=== PATIENT | female | born 1995 | race Caucasian/White ===

== ENCOUNTER 2025-02-14 18:18 | Inpatient (IN) | payer BC, SELFPAY ==
[2025-02-14] VITALS (7 sets, daily range): BP systolic 102–132; BP diastolic 56–79; BMI 28.9
[2025-02-14 13:08] LABS: Glucose - Point of Care 353 mg/dl (70-99)
--- NOTE | 2025-02-14 14:10 | ED.GENMED ---
History of Present Illness
<Alan Wahl PA-C - Last Filed: 02/14/25 16:26>
General
Chief Complaint: Blood Sugar Problem
Source: patient
Exam Limitations: none
Time Seen by Provider: 02/14/25 13:53
History of Present Illness
History of Present Illness:
29-year-old female with type I diabetic presents complaining of nausea and vomiting starting today. She is here visiting from [facility] where she lives. Her mother has been admitted to the hospital over the past 2 weeks. She states she also
under some stress from work. She forgot her glucose monitor at home in [facility] so she has been guessing as far as how much insulin to give herself. She has had DKA but in the years past. She denies chest pain or respiratory difficulty. She
just does not feel quite right. No other complaints at this time
Phy Exam
<Alan Wahl PA-C - Last Filed: 02/14/25 16:26>
Physical Exam
Physical Exam:
General: Well appearing female NAD
HEENT: NCAT
heart: Tachycardic but regular
Lungs: Clear no wheeze
Abdomen soft nontender
Extremities: No cyanosis
Course
<CHINO Gallo Last Filed: 02/14/25 16:26>
Orders/Labs/Results
Orders:
Orders
02/14/25 14:04
0.9% Sodium Chloride 1000 ml [Nss] 1,000 ml IV BOLUS
02/14/25 14:13
Acetone [B-Hydroxybutyrate] Urgent
Basic Metabolic Panel Urgent
Complete Blood Count/With Diff Urgent
02/14/25 15:02
Ondansetron Injectable [Zofran] 4 mg IV NOW STA
02/14/25 15:29
Comprehensive Metabolic Panel Urgent
Venous Blood Gas Urgent
%Oxygen/Room Air: room air
02/14/25 15:54
Add On- LAB Urgent
Tests Added?: BHB
02/14/25 16:12
Bedside Glucose- Treatment Q1H
IV Insert/Care/Rem.- Treatment PRN
Reg Insulin 100 Units/100 ml [Novolin R Insulin Infusion] 100 units in 100 ml IV NOW
02/14/25 18:15
Basic Metabolic Panel Q2H
02/14/25 20:15
Basic Metabolic Panel Q2H
Abnormal Lab Results
02/14/25 02/14/25 02/14/25
13:06 14:13 15:29
WBC 19.0 H 10^3/uL
(4.8-10.8)
MPV 11.8 H fL
(7.4-10.4)
Abs Immat Gran (auto) 0.1 H 10^3/uL
(0-0.05)
Absolute Neuts (auto) 17.3 H 10^3/uL
(1.4-6.5)
Absolute Lymphs (auto) 1.1 L 10^3/uL
(1.2-3.4)
Neutrophils % 90.8 H %
(42.2-75.2)
Lymphocytes % 5.7 L %
(20.5-51.1)
VBG pH 7.26 L
(7.32-7.43)
VBG pO2 56 H mmHg
(30-50)
VBG HCO3 17.1 L mmol/L
(22-27)
Sodium 134 L mmol/L 133 L mmol/L
(135-145) (135-145)
Potassium 5.3 H mmol/L
(3.5-5.1)
Chloride 96 L mmol/L
(98-107)
Carbon Dioxide 17 L mmol/L 17 L mmol/L
(22-30) (22-30)
BUN 20 H mg/dl 20 H mg/dl
(7-17) (7-17)
Glucose 367 H mg/dl 361 H mg/dl
(70-99) (70-99)
Total Bilirubin 1.8 H mg/dl
(0.2-1.3)
POC Glucose 353 H mg/dl
(70-99)
02/14/25
16:05
WBC
MPV
Abs Immat Gran (auto)
Absolute Neuts (auto)
Absolute Lymphs (auto)
Neutrophils %
Lymphocytes %
VBG pH
VBG pO2
VBG HCO3
Sodium
Potassium
Chloride
Carbon Dioxide
BUN
Glucose
Total Bilirubin
POC Glucose 341 H mg/dl
(70-99)
02/14/25 14:13
Vital Signs
Initial and Last Documented VS:
Initial Vital Signs
Temp Pulse Resp BP Pulse Ox
97.9 F 123 18 130/79 98
02/14/25 13:00 02/14/25 13:00 02/14/25 13:00 02/14/25 13:00 02/14/25 13:00
Last Documented Vital Signs
Temp Pulse Resp BP Pulse Ox
97.9 F 106 18 102/63 99
02/14/25 13:00 02/14/25 16:11 02/14/25 16:11 02/14/25 16:08 02/14/25 16:15
<Mac Wilkinson, DO - Last Filed: 02/14/25 16:30>
Orders/Labs/Results
Orders:
Orders
02/14/25 14:04
0.9% Sodium Chloride 1000 ml [Nss] 1,000 ml IV BOLUS
02/14/25 14:13
Acetone [B-Hydroxybutyrate] Urgent
Basic Metabolic Panel Urgent
Complete Blood Count/With Diff Urgent
02/14/25 15:02
Ondansetron Injectable [Zofran] 4 mg IV NOW STA
02/14/25 15:29
Comprehensive Metabolic Panel Urgent
Venous Blood Gas Urgent
%Oxygen/Room Air: room air
02/14/25 15:54
Add On- LAB Urgent
Tests Added?: BHB
02/14/25 16:12
Bedside Glucose- Treatment Q1H
IV Insert/Care/Rem.- Treatment PRN
Reg Insulin 100 Units/100 ml [Novolin R Insulin Infusion] 100 units in 100 ml IV NOW
02/14/25 18:15
Basic Metabolic Panel Q2H
02/14/25 20:15
Basic Metabolic Panel Q2H
Abnormal Lab Results
02/14/25 02/14/25 02/14/25
13:06 14:13 15:29
WBC 19.0 H 10^3/uL
(4.8-10.8)
MPV 11.8 H fL
(7.4-10.4)
Abs Immat Gran (auto) 0.1 H 10^3/uL
(0-0.05)
Absolute Neuts (auto) 17.3 H 10^3/uL
(1.4-6.5)
Absolute Lymphs (auto) 1.1 L 10^3/uL
(1.2-3.4)
Neutrophils % 90.8 H %
(42.2-75.2)
Lymphocytes % 5.7 L %
(20.5-51.1)
VBG pH 7.26 L
(7.32-7.43)
VBG pO2 56 H mmHg
(30-50)
VBG HCO3 17.1 L mmol/L
(22-27)
Sodium 134 L mmol/L 133 L mmol/L
(135-145) (135-145)
Potassium 5.3 H mmol/L
(3.5-5.1)
Chloride 96 L mmol/L
(98-107)
Carbon Dioxide 17 L mmol/L 17 L mmol/L
(22-30) (22-30)
BUN 20 H mg/dl 20 H mg/dl
(7-17) (7-17)
Glucose 367 H mg/dl 361 H mg/dl
(70-99) (70-99)
Total Bilirubin 1.8 H mg/dl
(0.2-1.3)
POC Glucose 353 H mg/dl
(70-99)
02/14/25
16:05
WBC
MPV
Abs Immat Gran (auto)
Absolute Neuts (auto)
Absolute Lymphs (auto)
Neutrophils %
Lymphocytes %
VBG pH
VBG pO2
VBG HCO3
Sodium
Potassium
Chloride
Carbon Dioxide
BUN
Glucose
Total Bilirubin
POC Glucose 341 H mg/dl
(70-99)
02/14/25 14:13
Vital Signs
Initial and Last Documented VS:
Initial Vital Signs
Temp Pulse Resp BP Pulse Ox
97.9 F 123 18 130/79 98
02/14/25 13:00 02/14/25 13:00 02/14/25 13:00 02/14/25 13:00 02/14/25 13:00
Last Documented Vital Signs
Temp Pulse Resp BP Pulse Ox
97.9 F 106 18 102/63 99
02/14/25 13:00 02/14/25 16:11 02/14/25 16:11 02/14/25 16:08 02/14/25 16:15
<Alan Wahl PA-C - Last Filed: 02/14/25 16:26>
MDM/Problems Addressed
Differential Diagnosis Includes:
Patient concern for DKA as she has had this in the past and she has not been able to check her blood sugar levels over the past 2 weeks. Fingerstick glucose at triage was 353. She is slightly tachycardic with no respiratory distress. Will check
labs including beta hydroxybutyrate and hydrate. Offered nausea medicine however she declined.
<Alan Wahl PA-C - Last Filed: 02/14/25 16:26>
*Pulse Oximetry
SaO2: 98
Oxygen Mode of Delivery: Room air
Patient hypoxic: no
*Critical Care Note
Total Time (30-74mins, 75-104mins- exclusive of procedures): Not Applicable
<Alan Wahl PA-C - Last Filed: 02/14/25 16:26>
Update Note
Update Note:
Reviewed labs with leukocytosis with a white count of 19, pH is 7.2, serum glucose is elevated with an anion gap. I suspect mild DKA. Fluids ordered insulin drip ordered. Discussed with emergency room attending. Admit to hot
ED Attending Note
<Alan Wahl PA-C - Last Filed: 02/14/25 16:26>
-
Portions of this chart may have been created with voice recognition software.� Occasional wrong word or��sound alike� substitutions may have occurred due to the inherent limitations of voice recognition software.
<Mac Wilkinson, - Last Filed: 02/14/25 16:30>
ED Attending Note
Patient seen and examined by attending physician: Yes
ED Attending Note:
I have reviewed and agree with history treatment plan by Alan Wahl PA-C. My exam revealed
Physical Exam
General: no apparent distress, not acutely ill
Neck: supple. no meningeal signs. normal posterior pharynx
Heart: s1/s2 regular rate and rhythm, no murmur. equal radial
pulses.
HEENT: Pupils equal round reactive to light, EOMI
Lungs: no acute respiratory distress. clear bilaterally
Abdomen: normal bowel sounds. not tender. no CVAT
Neuro: alert and oriented. no focal neurological deficits cranial nerves II through XII intact
Skin: no rash
Psychiatric: well kept. interactive and cooperative
Extremities: no edema. no calf tenderness. negative homans. good distal pulses
29-year-old female with mild DKA, insulin drip initiated mild hyperkalemia. Admit to hospitalist.
Discharge Plan
Departure
Patient Disposition: Admit
Date of Disposition: 02/14/25
Time of Disposition: 16:25
Presentation/result/management discussed w/ accepting MD/DO: Hospitalist
Discharge Problem:
DKA (diabetic ketoacidosis)
Referrals:
NONE,* [Family Provider, Internal Medicine]
Interventions
Interventions:
*Risk Screen - Suicide Last Done: 02/14/25 13:00
*General Assessment Last Done: 02/14/25 13:00
*Neglect/Abuse Screening Last Done: 02/14/25 14:15
*ED- Fall Risk Assessment Last Done: 02/14/25 14:18
*ED COVID-19 Vaccine History Last Done: 02/14/25 14:15
*ED Influenza Vaccine History Last Done: 02/14/25 14:18
ED- Neurological Assessment Last Done: 02/14/25 14:18
Discharge Date and Time
Print Language: BAHAMIAN
[2025-02-14] MEDS: NSS 1000 IV ×2 (14:14→18:37)
[2025-02-14 14:32] LABS: Hematocrit 42.2 % (37.0-47.0); Hemoglobin 14.4 g/dL (12.0-16.0); Mean Corp Hgb Conc. 34.1 g/dL (33.0-37.0); Mean Corpuscular Volume 89.6 fL (81.0-99.0); Nucleated Red Blood Cells % 0 %; Platelet Count 281 10^3/uL (130-400); Red Cell Dist. Width 12.3 % (11.5-14.5)
[2025-02-14] MEDS: ZOFRAN 4 MG IV (15:08)
[2025-02-14 15:19] LABS: Blood Urea Nitrogen 20 mg/dl (7-17); Calcium 9.9 mg/dl (8.4-10.2); Carbon Dioxide 17 mmol/L (22-30); Chloride 96 mmol/L (98-107); Glucose 367 mg/dl (70-99); Sodium 134 mmol/L (135-145); eGFR > 60.00
[2025-02-14 15:36] LABS: Venous Blood Gas B.E. -9.3 mmol/L (-4 to +4); Venous Blood Gas O2 Sat % 85.0 %
[2025-02-14 15:50] LABS: ALT (SGPT) 17 U/L (0-35); AST (SGOT) 24 U/L (14-36); Albumin 4.6 g/dl (3.5-5.0); Alkaline Phosphatase 75 U/L (38-126); Blood Urea Nitrogen 20 mg/dl (7-17); Calcium 9.3 mg/dl (8.4-10.2); Carbon Dioxide 17 mmol/L (22-30); Chloride 100 mmol/L (98-107); Glucose 361 mg/dl (70-99); Potassium 5.3 mmol/L (3.5-5.1); Sodium 133 mmol/L (135-145); Total Protein 7.5 g/dl (6.3-8.2); eGFR > 60.00
[2025-02-14 16:06] LABS: Glucose - Point of Care 341 mg/dl (70-99)
[2025-02-14] MEDS: NOVOLIN R INSULIN INFUSION 100 IV (16:39)
--- NOTE | 2025-02-14 16:39 | HPS.HSE ---
Addendum entered and electronically signed by Zoila Harris MD 02/14/25 18:04:
This is an addendum to H&P written by Delaney Perez on 02/14/2025. �Patient seen and examined independently with JUICE MIXER.
29-year-old female past medical history of type 1 diabetes presenting with nausea and vomiting today and diarrhea today. �She is from [facility] but came here to visit her mother who is admitted in this hospital. �She forgot her glucose monitor
at home 2 weeks ago and trying to administer glucose via the pump as best she can.
Vital signs show tachycardia up to 124.
Labs show leukocytosis of 19. �Potassium 5.3. �Blood sugar 360. �Beta hydroxybutyrate 4.7. �Anion gap 16. �VBG shows pH of 7.26, bicarb of 17.
Patient with mild DKA secondary to insufficient insulin. �N.p.o., IV fluids with normal saline. �Accu-Cheks every hour, BMP every 2 hours. �Insulin drip.
Original Note:
Family Physician
-
Family Physician: * NONE
Chief Complaint
-
nausea and vomiting
History of Present Illness
Patient is a 29-year-old female with past medical history of IDDM who presented to [facility] ED for evaluation of nausea and vomiting. Patient is in the area visiting from [place] on a emergent bases after her mom required hospitalization. In the [place] to
get to the area during packing 2 weeks ago she had forgotten to pack a glucose monitor and has been estimating what she required for insulin since. This morning she started with nausea, vomiting and an episode of diarrhea when she knew she would
need evaluation.
Medical History
Past Medical History
Past Medical History: Reports Other
Additional Past Medical History:
type 1 diabetes
Past Surgical History: Reports Other
Additional Past Surgical History:
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
Social History
Tobacco: Non-smoker
Alcohol: Occasional
Drug: None
Personal: Single
Living: Alone
Employment: Employed
Family History
Family History: Adopted
Allergies / Home Medications
Allergies reflects when Allergies were last updated in [facility].
Home Medications with original date entered in [facility]
Allergy/Medication List:
Allergies
Allergy/AdvReac Type Severity Reaction Status Date / Time
seasonal pollens Allergy sore Uncoded 02/14/25 13:00
throat,runny
nose,itchy
eyes,
congestion
Home Medications
insulin aspart U-100 100 unit/mL subcutaneous solution (Novolog U-100 Insulin aspart) 1 sliding scale dose SC .CONTINUOUS 02/14/25
Review of Systems
-
History Source: Patient
Constitutional: Denies Fever or Chills
EENT: Denies Sore Throat
Respiratory: Denies Cough, Hemoptysis or Trouble Breathing
Cardiac: Denies Chest Pain, Diaphoresis, Palpitations or Syncope
Abdomen/GI: Reports Nausea, Vomiting and Diarrhea; Denies Abdominal Pain
: Denies Dysuria, Frequency or Urgency
Musculoskeletal: Denies Joint Pain or Joint Swelling
Skin: Denies Rash
Neurological: Denies Dizzy, Headache, Weakness or Numbness
Endocrine: Denies Polyuria or Polydipsia
Hematologic/Lymphatic: Denies Bleeding
Physical Exam
Vital Signs
Vital Signs
Temp Pulse Resp BP Pulse Ox
97.9 F 106 18 102/63 99
02/14/25 13:00 02/14/25 16:11 02/14/25 16:11 02/14/25 16:08 02/14/25 16:15
Physical Exam
General: Well Developed, Well Nourished, No Apparent Distress, Comfortable and Conversant
HEENT: NormoCephalic, PERRLA, Nose Appears Normal and Ears Appear Normal
Respiratory: Clear, Non Labored Respirations and Decreased Breath Sounds; No Wheezes, Rales or Rhonchi
Cardiac: S1/S2 and Regular Rhythm; No Murmur, Rub or Gallop
GI: Soft, Non Tender, Non Distended and Normal Bowel Sounds
Musculoskeletal: No Clubbing, No Cyanosis and No Edema
Skin: Warm and IV/Catheter Site
Neuro: Awake and AO x 3
Psych: Calm and Intact Judgment/Insight
Laboratory Results
-
02/14/25 14:13
Laboratory Results
Total Bilirubin 1.8 mg/dl (0.2-1.3) H 02/14/25 15:29
AST 24 U/L (14-36) 02/14/25 15:29
ALT 17 U/L (0-35) 02/14/25 15:29
Alkaline Phosphatase 75 U/L (38-126) 02/14/25 15:29
Data Reviewed
-
Lab Data: Labs Reviewed by me (WBC 19.0, Neut 90.8, Na 133, K 5.3, HCO3 17)
Impression/Plan
-
IMPRESSION/PLAN:
#nausea, vomiting and diarrhea 2/2 infectious process vs. DKA
#IDDM
nausea, vomiting and diarrhea starting today 02/14/2025, no AccuCheck for 2 weeks r/t forgetting at home
on insulin pump
WBC 19.0, Neut 90.8, Na 133, K 5.3, HCO3 17
- Admit to IMU
- Consult Taker Away
- Insulin gtt
- NSS 150cc/hr
- pump turned off while on insulin gtt for DKA
Code status: full code
DVT prophylaxis: Lovenox sq
[2025-02-14 17:42] LABS: Glucose - Point of Care 292 mg/dl (70-99)
[2025-02-14] MEDS: LOVENOX 40 MG SC (18:37)
[2025-02-14 18:55] LABS: Blood Urea Nitrogen 21 mg/dl (7-17); Calcium 9.6 mg/dl (8.4-10.2); Carbon Dioxide 17 mmol/L (22-30); Chloride 102 mmol/L (98-107); Estimated Creatinine Clearance 101 ml/min; Glucose 225 mg/dl (70-99); Potassium 4.1 mmol/L (3.5-5.1); Sodium 133 mmol/L (135-145); eGFR > 60.00
[2025-02-14 18:55] LABS: Glucose - Point of Care 202 mg/dl (70-99)
--- NOTE | 2025-02-14 19:02 | PTCARENOTE ---
Patient to room 3354 from ED. Pt arrived on a stretcher and walked to bed. On arrival, pt with Insluin gtt running, blood sugar obtained and changed gtt based on protocol, see flowsheet. Pt is aaox3, pleasant. BMP obtained. Pt does have her Insulin
pump attached but it is off. Pt is NPO, she verbalized understanding. Report given to oncoming shift.
[2025-02-14 20:16] LABS: Glucose - Point of Care 131 mg/dl (70-99)
[2025-02-14] MEDS: D5/0.45%NSS with KCL 20 MEQ 1000 IV (20:23)
[2025-02-14 21:03] LABS: Blood Urea Nitrogen 19 mg/dl (7-17); Calcium 9.1 mg/dl (8.4-10.2); Carbon Dioxide 21 mmol/L (22-30); Chloride 105 mmol/L (98-107); Estimated Creatinine Clearance 115 ml/min; Glucose 127 mg/dl (70-99); Potassium 4.2 mmol/L (3.5-5.1); Sodium 132 mmol/L (135-145); eGFR > 60.00
[2025-02-14 21:14] LABS: Glucose - Point of Care 131 mg/dl (70-99)
[2025-02-14 22:15] LABS: Glucose - Point of Care 146 mg/dl (70-99)
[2025-02-14 22:41] LABS: Potassium 4.2 mmol/L (3.5-5.1)
--- NOTE | 2025-02-14 22:52 | PTCARENOTE ---
Assumed care of patient from franciscailjordan RN. Patient aaox3. Sinus tach on monitor, 100-110s. 98% on RA. insulin gtt currently infusing at 1 u/hr per protocol. q1 accu checks ongoing. Patient resting in bed with call bentley in reach and is able to make
needs known.
[2025-02-14 23:20] LABS: Glucose - Point of Care 156 mg/dl (70-99)
[2025-02-15] VITALS (9 sets, daily range): BP systolic 89–129; BP diastolic 53–87
[2025-02-15 00:17] LABS: Glucose - Point of Care 158 mg/dl (70-99)
[2025-02-15 01:21] LABS: Glucose - Point of Care 141 mg/dl (70-99)
[2025-02-15 02:21] LABS: Glucose - Point of Care 146 mg/dl (70-99)
[2025-02-15 02:59] LABS: Blood Urea Nitrogen 18 mg/dl (7-17); Calcium 8.7 mg/dl (8.4-10.2); Carbon Dioxide 24 mmol/L (22-30); Chloride 106 mmol/L (98-107); Estimated Creatinine Clearance 115 ml/min; Glucose 168 mg/dl (70-99); Potassium 4.4 mmol/L (3.5-5.1); Sodium 136 mmol/L (135-145); eGFR > 60.00
[2025-02-15 03:20] LABS: Glucose - Point of Care 149 mg/dl (70-99)
[2025-02-15 04:22] LABS: Glucose - Point of Care 160 mg/dl (70-99)
[2025-02-15 05:00] LABS: Hematocrit 35.7 % (37.0-47.0); Hemoglobin 12.4 g/dL (12.0-16.0); Mean Corp Hgb Conc. 34.7 g/dL (33.0-37.0); Mean Corpuscular Volume 91.1 fL (81.0-99.0); Platelet Count 251 10^3/uL (130-400); Red Cell Dist. Width 12.3 % (11.5-14.5)
[2025-02-15 05:14] LABS: Glucose - Point of Care 160 mg/dl (70-99)
[2025-02-15 05:24] LABS: Blood Urea Nitrogen 19 mg/dl (7-17); Calcium 8.8 mg/dl (8.4-10.2); Carbon Dioxide 24 mmol/L (22-30); Chloride 105 mmol/L (98-107); Estimated Creatinine Clearance 115 ml/min; Glucose 161 mg/dl (70-99); Potassium 4.6 mmol/L (3.5-5.1); Sodium 132 mmol/L (135-145); eGFR > 60.00
[2025-02-15 06:21] LABS: Glucose - Point of Care 130 mg/dl (70-99)
[2025-02-15 07:15] LABS: Glucose - Point of Care 138 mg/dl (70-99)
[2025-02-15] MEDS: D5/0.45%NSS with KCL 20 MEQ 1000 IV (07:46)
[2025-02-15 08:10] LABS: Glucose - Point of Care 147 mg/dl (70-99)
--- NOTE | 2025-02-15 08:57 | W.PN.HOSP.TC ---
Today's Communication/Plan
-
Discharge in the afternoon if tolerating diet
Assessment / Plan
Assessment / Plan
HPI: 29-year-old female past medical history of type 1 diabetes presenting with nausea and vomiting today and diarrhea today. �She is from [facility] but came here to visit her mother who is admitted in this hospital. �She forgot her glucose
monitor at home 2 weeks ago and trying to administer glucose via the pump as best she can. Labs show leukocytosis of 19. �Potassium 5.3. �Blood sugar 360. �Beta hydroxybutyrate 4.7. �Anion gap 16. �VBG shows pH of 7.26, bicarb of 17. Patient with
mild DKA secondary to insufficient insulin. �N.p.o., IV fluids with normal saline. �Accu-Cheks every hour, BMP every 2 hours. �Insulin drip.
#Mild DKA
#Type 1 diabetes hemoglobin A1c 8.3
Gap closed on insulin drip
Appreciate DM TOOL AND DIE SUPERVISOR, stop insulin drip, restart insulin pump
Start 2000 carb ADA diet
Discharge in the afternoon if tolerating diet
#Nausea/vomiting/diarrhea
Resolved
#Leukocytosis
Patient is afebrile, likely reactive from vomiting and DKA
Physical Exam
General: No acute distress
HEENT: Normocephalic, Atraumatic, EOMI, MMM
Respiratory: Clear to Auscultation bilaterally
Cardiac: Normal S1/S2, Regular Rate and Rhythm
GI: Soft, Nontender, Nondistended, Normal Bowel Sounds
Extremities: No Clubbing, Cyanosis, or Edema
Neuro: Nonfocal/Grossly Intact
Psych: Calm, Cooperative
Derm: No Visible lesions
Anticipated Discharge: Today
Subjective/Interval History
-
Date of Service: February 15, 2025
Nausea, vomiting, and diarrhea resolved. She denies chest pain, denies shortness of breath. No fever, no vomiting.
Objective Data
-
Labs:
Laboratory Results
02/14/25 02/14/25 02/15/25
20:26 22:14 00:14
WBC
Hgb
Hct
Plt Count
Sodium 132 L Cancelled
Potassium 4.2 4.2 Cancelled
Chloride 105 Cancelled
Carbon Dioxide 21 L Cancelled
BUN 19 H Cancelled
Creatinine 0.7 Cancelled
Glucose 127 H Cancelled
Calcium 9.1 Cancelled
02/15/25 02/15/25 02/15/25
02:22 04:00 04:08
WBC
Hgb
Hct
Plt Count
Sodium 136 Cancelled 132 L
Potassium 4.4 Cancelled 4.6
Chloride 106 Cancelled 105
Carbon Dioxide 24 Cancelled 24
BUN 18 H Cancelled 19 H
Creatinine 0.7 Cancelled 0.7
Glucose 168 H Cancelled 161 H
Calcium 8.7 Cancelled 8.8
02/15/25 02/15/25 02/15/25
04:10 06:00 08:20
WBC 16.6 H
Hgb 12.4
Hct 35.7 L
Plt Count 251
Sodium Cancelled Pending
Potassium Cancelled Pending
Chloride Cancelled Pending
Carbon Dioxide Cancelled Pending
BUN Cancelled Pending
Creatinine Cancelled Pending
Glucose Cancelled Pending
Calcium Cancelled Pending
02/15/25 02/15/25 02/15/25
12:00 16:00 20:00
WBC
Hgb
Hct
Plt Count
Sodium Pending Pending Pending
Potassium Pending Pending Pending
Chloride Pending Pending Pending
Carbon Dioxide Pending Pending Pending
BUN Pending Pending Pending
Creatinine Pending Pending Pending
Glucose Pending Pending Pending
Calcium Pending Pending Pending
Vital Signs:
Vital Signs
Temp Pulse Resp BP Pulse Ox
98.4 F 74 17 95/64 98
02/15/25 03:14 02/15/25 04:12 02/15/25 04:12 02/15/25 04:12 02/15/25 04:12
I&O
02/14/25 02/15/25 02/16/25
06:59 06:59 06:59
Intake Total 1250 / 1250
Balance 1250 / 1250
--- NOTE | 2025-02-15 09:03 | PN.DE.MGMTRT ---
Insulin Management
- -
02/15/2025: Diabetes Management Consult
29 year old female with PMH: T1DM presenting with nausea and vomiting today and diarrhea, due to DKA.
Patient is in the area visiting from [place] on a emergent bases after her mom required hospitalization. In the [place] to get to the area during packing 2 weeks ago she had forgotten to pack a glucose monitor and has been estimating what she required for
insulin since.
She routinely sees Endo Dr. Macedo in [place] for routine diabetes care.
A1C 8.3% on admission. Pt states last A1C in Endo office was 8.2% on 12/2024. Cr 0.7, eGFR >60
Patient is awake alert and oriented sitting up in chair, offers no complaints able to discuss diabetes care plan.
Currently on DKA protocol, GAP has closed as of 4AM BMP. Glucose range is 130 to 160 receiving 1-2 units of insulin/hr
Pt doesn't have a CGM but has enough insulin in her pump. Explained to pt that she would need to have a Dexcom sensor in order for her to monitor her blood sugars, she is not able to obtain a sensor at this time. Discussed options for interim
management and pt declined MDI, states she would like to resume her insulin pump. Provided Patient with a new CGM Christiano 3 plus sensor, she has downloaded the Christiano lavinia and is in process of syncing CGM sensor with her pump and phone. Returned to pt's
room after sensor warmup period to assist with restarting insulin pump
He current POC Glucose on hospital AccuChek machine is 164. Patient has applied her insulin pump and she is able to manage her insulin pump and deliver meal and correction boluses independently.
Pump worksheet at bedside.
Discussed with patients nurse.
Pump settings:
Basal Correction CHO target
12am 1.3 40 8 110
12PM 1.3 30 10 110
7PM 1.3 25 10 110
24 HOUR BASAL TOTAL 31.2 UNITS
Pt is ordered 2000 joycelyn diet will change to 1800 joycelyn diet, pt is only 5'3'
Diabetes History
- -
Type of Diabetes: 1
Pre-Admission Diabetes Regimen
02/14/25 02/14/25 02/14/25
14:13 15:29 16:15
Creatinine 0.7 0.7 Cancelled
02/14/25 02/14/25 02/15/25
18:29 20:26 00:14
Creatinine 0.8 0.7 Cancelled
02/15/25 02/15/25 02/15/25
02:22 04:00 04:08
Creatinine 0.7 Cancelled 0.7
02/15/25 02/15/25 02/15/25
06:00 12:00 16:00
Creatinine Cancelled Cancelled Cancelled
02/15/25
20:00
Creatinine Cancelled
Insulin Pump Settings
IP Diabetes Regimen
02/14/25 02/14/25 02/14/25
13:06 14:13 15:29
Glucose 367 H 361 H
POC Glucose 353 H
02/14/25 02/14/25 02/14/25
16:05 16:15 17:41
Glucose Cancelled
POC Glucose 341 H 292 H
02/14/25 02/14/25 02/14/25
18:29 18:44 20:06
Glucose 225 H
POC Glucose 202 H 131 H
02/14/25 02/14/25 02/14/25
20:26 21:03 22:04
Glucose 127 H
POC Glucose 131 H 146 H
02/14/25 02/15/25 02/15/25
23:09 00:06 00:14
Glucose Cancelled
POC Glucose 156 H 158 H
02/15/25 02/15/25 02/15/25
01:09 02:10 02:22
Glucose 168 H
POC Glucose 141 H 146 H
02/15/25 02/15/25 02/15/25
03:08 04:00 04:08
Glucose Cancelled 161 H
POC Glucose 149 H 160 H
02/15/25 02/15/25 02/15/25
05:03 06:00 06:10
Glucose Cancelled
POC Glucose 160 H 130 H
02/15/25 02/15/25 02/15/25
07:04 07:59 12:00
Glucose Cancelled
POC Glucose 138 H 147 H
02/15/25 02/15/25
16:00 20:00
Glucose Cancelled Cancelled
POC Glucose
Patient Education
[2025-02-15 09:05] LABS: Blood Urea Nitrogen 18 mg/dl (7-17); Calcium 9.0 mg/dl (8.4-10.2); Carbon Dioxide 24 mmol/L (22-30); Chloride 104 mmol/L (98-107); Estimated Creatinine Clearance 115 ml/min; Glucose 146 mg/dl (70-99); Potassium 4.1 mmol/L (3.5-5.1); Sodium 133 mmol/L (135-145); eGFR > 60.00
[2025-02-15 09:10] LABS: Glucose - Point of Care 143 mg/dl (70-99)
[2025-02-15 09:23] LABS: Magnesium 2.2 mg/dl (1.6-2.3)
[2025-02-15 10:11] LABS: Glucose - Point of Care 166 mg/dl (70-99)
--- NOTE | 2025-02-15 10:53 | PTCARENOTE ---
Assumed care of patient this morning. Pt remains on Insulin gtt, protocol maintained. Pt does not have any complaints. Pt OOB to chair this morning. Pt working on laptop. Per Car Dropper, plans for changes around lunch time, awaiting orders.
Assessment, care and VS as charted.
[2025-02-15 11:17] LABS: Glucose - Point of Care 164 mg/dl (70-99)
[2025-02-15 11:32] LABS: Glycohemoglobin (HgbA1c) 8.3 % (4.0-5.9)
--- NOTE | 2025-02-15 11:59 | PTCARENOTE ---
02/15/2025 DIABETES EDUCATION CONSULT
Provided patient with Contour Next glucometer test kit. She declined demonstration, is aware how to check BS. She will outreach with any questions or concerns.
[2025-02-15] MEDS: PT'S OWN INSULIN PUMP - NovoLOG 7 UNIT SC (12:10)
[2025-02-15 12:15] LABS: Glucose - Point of Care 165 mg/dl (70-99)
--- NOTE | 2025-02-15 12:42 | CM ---
chronic manager reviewed patient's chart and met with patient and patient states she lives in an apartment in [facility], patient was up in this area to visit her mother and ended up needing to be admitted to hospital, patient reports that she is
heading back to [place] to her apartment and plans on requesting to work remotely in order to assist with mothers's care.
Per patient she has been provided a CGM at hospital, for continuous monitoring.
Plan; Home when stable, patient is using [facility], pharmacy.
[2025-02-15 13:49] LABS: Glucose - Point of Care 314 mg/dl (70-99)
--- NOTE | 2025-02-15 14:27 | W.DCSUMMARY ---
Discharge Summary
Discharge Data
Date of Admission: 02/14/25
Date of Discharge: 02/15/25
-
Pending Results: No
Hospital Course
Discharge diagnosis:
Diabetic ketoacidosis
Type 1 diabetes
Nausea/vomiting/diarrhea
Reactive leukocytosis
Hyponatremia
Consults: Diabetes nurse practitioner
Hospital course:
29-year-old female with a past medical history of type 1 diabetes on an insulin pump was admitted for nausea, vomiting, diarrhea, and diabetic ketoacidosis. Patient is visiting from [facility], and forgot to pack her glucometer. She was
estimating how much insulin she should give herself, but was not giving herself enough insulin, resulting in DKA. She was treated with an IV insulin drip, IV fluids. She was seen in conjunction with the diabetes nurse practitioner. Her gap
closed, and she was transitioned back to her insulin pump. She tolerated a diet. She is medically stable for discharge. She needs to follow-up with her PCP after she returns to [facility].
Disposition: Home self-care
Discharge planning: Required 39 minutes
Discharge Plan
-
Patient Disposition: Home (Routine Discharge)
Discharge Diagnosis/Procedures: Mild diabetic ketoacidosis, hyponatremia/low sodium
Condition: Good
Diet: Diabetic, Carb Controlled
Activity: As tolerated
Driving Restrictions: As prior to admission
Activity Restrictions/Additional Instructions:
Your hemoglobin A1c is 8.3.
Please adhere to a low carbohydrate diet, and maintain your usual insulin regimen.
Please follow-up with your PCP in 1 week.
Referrals:
NONE,* [Family Provider, Internal Medicine]
Prescriptions:
Continued
insulin aspart U-100 [Novolog U-100 Insulin aspart] 100 unit/mL solution
1 sliding scale dose SC .CONTINUOUS
Rx Instructions:
CARB RATIO 1:10
Discharge Orders:
Discharge Patient (As Directed); Ordered 02/15/25
Ordered By: Jericho Moody
Discharge Date and Time
Discharge Date/Time: 02/15/25 15:07
Print Language: ECUADOREAN
== END 2025-02-15 15:07 | disposition home or self-care (01) | DRG 638 ==
LOC: IMU 18:18
PROVIDERS: Nurse Practitioner Family; Physician Assistant; Registered Nurse; ADMITTING PHYSICIAN Hospitalist; ATTENDING PHYSICIAN Family Medicine; EMERGENCY PHYSICIAN Emergency Medicine
DX: E10.10 Type 1 diabetes mellitus with ketoacidosis without coma (principal); E87.1 Hypo-osmolality and hyponatremia; Z96.41 Presence of insulin pump (external) (internal); Z79.4 Long term (current) use of insulin; T38.3X6A Underdosing of insulin and oral hypoglycemic [antidiabetic] drugs, initial encounter; Z91.138 Patient's unintentional underdosing of medication regimen for other reason
CPT/HCPCS: 80048; 80053; 82010; 82805; 82962; 83036; 83735; 84100; 84132; 85025; 85027; 96365; 96366; 96375; 99284

== ENCOUNTER 2025-02-15 21:44 | Inpatient (IN) | payer BC, SELFPAY ==
[2025-02-15 19:01] VITALS: BP 124/73
[2025-02-15 19:17] LABS: Glucose - Point of Care 435 mg/dl (70-99)
[2025-02-15 19:26] LABS: Hematocrit 39.1 % (37.0-47.0); Hemoglobin 13.6 g/dL (12.0-16.0); Mean Corp Hgb Conc. 34.8 g/dL (33.0-37.0); Mean Corpuscular Volume 89.1 fL (81.0-99.0); Nucleated Red Blood Cells % 0 %; Platelet Count 268 10^3/uL (130-400); Red Cell Dist. Width 12.4 % (11.5-14.5)
--- NOTE | 2025-02-15 19:31 | ED.GENMED ---
History of Present Illness
<ALEXI Yan - Last Filed: 02/16/25 02:49>
General
Chief Complaint: Blood Sugar Problem
Source: patient
Exam Limitations: none
Time Seen by Provider: 02/15/25 19:30
Nursing documentation reviewed up to this point in time: agreed with
History of Present Illness
History of Present Illness:
Patient is a 29-year-old type I diabetic presents to the ER for evaluation. Patient was seen here yesterday. Patient was admitted for nausea vomiting diarrhea and DKA. Patient is visiting from [place] and forgot her glucose monitor at that time. She
was estimating her insulin was giving her self her normal typical dose. She was given insulin IV and IV fluids. She reports blood sugar has been reading high which improved to her home. She denies any nausea vomiting fever chills
Phy Exam
<ALEXI Yan - Last Filed: 02/16/25 02:49>
General Physical Exam
General Presentation: no apparent distress
General age: appears stated age
General Skin: warm and dry
General Habitus: normal
General Mental: alert
General Hydration: appears well hydrated
Cardiovascular Exam
Cardiovascular Exam: tachycardia
Pulmonary Exam
Pulmonary Exam: lungs clear and no respiratory distress
Neurological Exam
Neurological Exam: alert and oriented x3
Musculoskeletal Exam
Musculoskeletal Exam: full ROM
Skin Exam
Skin Exam: normal color and warm/dry
Psychiatric Exam
Psychiatric Exam: normal mood/affect
Course
<ALEXI Yan - Last Filed: 02/16/25 02:49>
Orders/Labs/Results
Orders:
Orders
02/15/25 Dinner
NPO
Allow oral meds: Yes
Allow clear liquids: Sips of Clears
02/15/25 19:07
Test Result ONCE
02/15/25 19:18
Urinalysis Reflex To Culture Urgent
Date Specimen was Collected: 02/15/25
Time Specimen was Collected: 19:07
02/15/25 19:19
B-Hydroxybutyrate Urgent
Comment: ADD ON
Complete Blood Count/With Diff Urgent
Comprehensive Metabolic Panel Urgent
HCG, Serum Qualitative Screen Urgent
02/15/25 19:36
Add On- LAB Urgent
Tests Added?: Beta-hydroxybutyrate
02/15/25 20:14
0.9% Sodium Chloride 1000 ml [Nss] 1,000 ml IV BOLUS
02/15/25 20:51
Venous Blood Gas Urgent
%Oxygen/Room Air: 21
02/15/25 21:00
Bedside Glucose- Treatment Q1H
IV Insert/Care/Rem.- Treatment PRN
02/15/25 21:11
Admit/Transfer Patient As Directed
Co-Sign Provider:
Level of Care: Inpatient admission
Assign to:: IMU- Intermediate Care
Physician / Group: renetta
Diagnosis: dka
Reason for Hospitalization: dka
Expected length of stay greater than two midnights?: Yes
ELOS- Estimated Length of Stay in days: 2
I certify the patient meets the requirements for IP care: Yes
PRN Pain Medication Management As Directed
May give lesser potent ordered pain med per pt: Yes
preference::
Protocol:: Medication orders for pain may be administered in a
manner that supports deferring to patient preference
when the pt is:
- Requesting an ordered lesser potent pain medication.
Least to most potent pain medications are defined
as: acetaminophen < NSAID < tramadol < opioids
(morphine, oxycodone, hydromorphone).
- Requesting a lesser dose of the same medication IF
ORDERED.
- Requesting a less intrusive route of administration
if both routes are prescribed by the provider (PO <
IV).
02/15/25 21:12
Code Status As Directed
Resuscitation Status: Full Code
02/15/25 21:23
Reg Insulin 100 Units/100 ml [Novolin R Insulin Infusion] 100 units in 100 ml IV NOW
02/15/25 23:03
Basic Metabolic Panel Q2H
02/15/25 23:49
0.9% Sodium Chloride 1000 ml [Nss] 1,000 ml IV 100 mls/hr
02/15/25 23:49
Diabetes Management by Nurse Practitioner Routine
Consulting Provider: Angeles Stevens
Was provider already notified?: No
Reason for Consult: Insulin Recommendation
Accucheck [Bedside Glucose Monitoring] As Directed
Frequency: Q1H
Activity As Directed
Activity Level: As Tolerated
Vital Signs As Directed
Frequency: Per unit guidelines
DX Deep Vein Thrombosis Video Routine
02/16/25 00:00
BMP [Basic Metabolic Panel] Q4
02/16/25 01:00
Basic Metabolic Panel Q2H
02/16/25 04:00
BMP [Basic Metabolic Panel] Q4
02/16/25 06:00
Complete Blood Count/With Diff IN AM
Comprehensive Metabolic Panel IN AM
02/16/25 08:00
BMP [Basic Metabolic Panel] Q4
02/16/25 18:00
Enoxaparin Sodium [Lovenox] 40 mg SC QPM
Abnormal Lab Results
02/15/25 02/15/25 02/15/25
19:16 19:18 19:19
WBC 13.0 H 10^3/uL
(4.8-10.8)
MPV 11.3 H fL
(7.4-10.4)
Abs Immat Gran (auto) 0.1 H 10^3/uL
(0-0.05)
Absolute Neuts (auto) 10.3 H 10^3/uL
(1.4-6.5)
Neutrophils % 79.2 H %
(42.2-75.2)
Lymphocytes % 16.0 L %
(20.5-51.1)
VBG pCO2
VBG pO2
VBG HCO3
Sodium 132 L mmol/L
(135-145)
Chloride 96 L mmol/L
(98-107)
Carbon Dioxide 19 L mmol/L
(22-30)
Glucose 494 H* mg/dl
(70-99)
Total Protein 8.3 H g/dl
(6.3-8.2)
Albumin 5.1 H g/dl
(3.5-5.0)
Urine Ketones 3+ A
(Negative)
Urine Glucose 4+ A
(Negative)
B-Hydroxybutyrate 3.74 H mmol/L
(0.02-0.27)
POC Glucose 435 H mg/dl
(70-99)
02/15/25 02/15/25
20:51 21:07
WBC
MPV
Abs Immat Gran (auto)
Absolute Neuts (auto)
Neutrophils %
Lymphocytes %
VBG pCO2 21 L mmHg
(35-48)
VBG pO2 168 H mmHg
(30-50)
VBG HCO3 12.1 L mmol/L
(22-27)
Sodium
Chloride
Carbon Dioxide
Glucose
Total Protein
Albumin
Urine Ketones
Urine Glucose
B-Hydroxybutyrate
POC Glucose 398 H mg/dl
(70-99)
02/15/25 19:19
02/15/25 21:00
Vital Signs
Initial and Last Documented VS:
Initial Vital Signs
Temp Pulse Resp BP Pulse Ox
98.2 F 100 20 124/73 100
02/15/25 19:01 02/15/25 19:01 02/15/25 19:01 02/15/25 19:01 02/15/25 19:01
Last Documented Vital Signs
Temp Pulse Resp BP Pulse Ox
97.9 F 102 23 114/60 98
02/16/25 00:02 02/15/25 23:30 02/15/25 23:30 02/15/25 22:33 02/15/25 23:30
Political Science Professor consulted with Physician
Political Science Professor consulted with physician?: Yes
Name of Physician Consulted: Claudia
<Martínez Tang, DO - Last Filed: 02/15/25 20:59>
Orders/Labs/Results
Orders:
Orders
02/15/25 Dinner
NPO
Allow oral meds: Yes
Allow clear liquids: Sips of Clears
02/15/25 19:07
Test Result ONCE
02/15/25 19:18
Urinalysis Reflex To Culture Urgent
Date Specimen was Collected: 02/15/25
Time Specimen was Collected: 19:07
02/15/25 19:19
B-Hydroxybutyrate Urgent
Comment: ADD ON
Complete Blood Count/With Diff Urgent
Comprehensive Metabolic Panel Urgent
HCG, Serum Qualitative Screen Urgent
02/15/25 19:36
Add On- LAB Urgent
Tests Added?: Beta-hydroxybutyrate
02/15/25 20:14
0.9% Sodium Chloride 1000 ml [Nss] 1,000 ml IV BOLUS
02/15/25 20:51
Venous Blood Gas Urgent
%Oxygen/Room Air: 21
02/15/25 21:00
Bedside Glucose- Treatment Q1H
IV Insert/Care/Rem.- Treatment PRN
02/15/25 21:11
Admit/Transfer Patient As Directed
Co-Sign Provider:
Level of Care: Inpatient admission
Assign to:: IMU- Intermediate Care
Physician / Group: renetta
Diagnosis: dka
Reason for Hospitalization: dka
Expected length of stay greater than two midnights?: Yes
ELOS- Estimated Length of Stay in days: 2
I certify the patient meets the requirements for IP care: Yes
PRN Pain Medication Management As Directed
May give lesser potent ordered pain med per pt: Yes
preference::
Protocol:: Medication orders for pain may be administered in a
manner that supports deferring to patient preference
when the pt is:
- Requesting an ordered lesser potent pain medication.
Least to most potent pain medications are defined
as: acetaminophen < NSAID < tramadol < opioids
(morphine, oxycodone, hydromorphone).
- Requesting a lesser dose of the same medication IF
ORDERED.
- Requesting a less intrusive route of administration
if both routes are prescribed by the provider (PO <
IV).
02/15/25 21:12
Code Status As Directed
Resuscitation Status: Full Code
02/15/25 21:23
Reg Insulin 100 Units/100 ml [Novolin R Insulin Infusion] 100 units in 100 ml IV NOW
02/15/25 23:03
Basic Metabolic Panel Q2H
02/15/25 23:49
0.9% Sodium Chloride 1000 ml [Nss] 1,000 ml IV 100 mls/hr
02/15/25 23:49
Diabetes Management by Nurse Practitioner Routine
Consulting Provider: Angeles Stevens
Was provider already notified?: No
Reason for Consult: Insulin Recommendation
Accucheck [Bedside Glucose Monitoring] As Directed
Frequency: Q1H
Activity As Directed
Activity Level: As Tolerated
Vital Signs As Directed
Frequency: Per unit guidelines
DX Deep Vein Thrombosis Video Routine
02/16/25 00:00
BMP [Basic Metabolic Panel] Q4
02/16/25 01:00
Basic Metabolic Panel Q2H
02/16/25 04:00
BMP [Basic Metabolic Panel] Q4
02/16/25 06:00
Complete Blood Count/With Diff IN AM
Comprehensive Metabolic Panel IN AM
02/16/25 08:00
BMP [Basic Metabolic Panel] Q4
02/16/25 18:00
Enoxaparin Sodium [Lovenox] 40 mg SC QPM
Abnormal Lab Results
02/15/25 02/15/25 02/15/25
19:16 19:18 19:19
WBC 13.0 H 10^3/uL
(4.8-10.8)
MPV 11.3 H fL
(7.4-10.4)
Abs Immat Gran (auto) 0.1 H 10^3/uL
(0-0.05)
Absolute Neuts (auto) 10.3 H 10^3/uL
(1.4-6.5)
Neutrophils % 79.2 H %
(42.2-75.2)
Lymphocytes % 16.0 L %
(20.5-51.1)
VBG pCO2
VBG pO2
VBG HCO3
Sodium 132 L mmol/L
(135-145)
Chloride 96 L mmol/L
(98-107)
Carbon Dioxide 19 L mmol/L
(22-30)
Glucose 494 H* mg/dl
(70-99)
Total Protein 8.3 H g/dl
(6.3-8.2)
Albumin 5.1 H g/dl
(3.5-5.0)
Urine Ketones 3+ A
(Negative)
Urine Glucose 4+ A
(Negative)
B-Hydroxybutyrate 3.74 H mmol/L
(0.02-0.27)
POC Glucose 435 H mg/dl
(70-99)
02/15/25 02/15/25
20:51 21:07
WBC
MPV
Abs Immat Gran (auto)
Absolute Neuts (auto)
Neutrophils %
Lymphocytes %
VBG pCO2 21 L mmHg
(35-48)
VBG pO2 168 H mmHg
(30-50)
VBG HCO3 12.1 L mmol/L
(22-27)
Sodium
Chloride
Carbon Dioxide
Glucose
Total Protein
Albumin
Urine Ketones
Urine Glucose
B-Hydroxybutyrate
POC Glucose 398 H mg/dl
(70-99)
02/15/25 19:19
02/15/25 21:00
Vital Signs
Initial and Last Documented VS:
Initial Vital Signs
Temp Pulse Resp BP Pulse Ox
98.2 F 100 20 124/73 100
02/15/25 19:01 02/15/25 19:01 02/15/25 19:01 02/15/25 19:01 02/15/25 19:01
Last Documented Vital Signs
Temp Pulse Resp BP Pulse Ox
97.9 F 102 23 114/60 98
02/16/25 00:02 02/15/25 23:30 02/15/25 23:30 02/15/25 22:33 02/15/25 23:30
<ALEXI Yan - Last Filed: 02/16/25 02:49>
MDM/Problems Addressed
Differential Diagnosis Includes:
Not limited to hyperglycemia dehydration, electrolyte abnormality DKA
MDM/Problems Addressed:
As documented patient is a 29-year-old female was seen here yesterday admitted for DKA discharged this morning. Patient is visiting from [place] and forgot her glucometer and was approximating her insulin dose. She went home today and blood sugars have
been running high. Patient does have a gap with an elevated beta hydroxybutyrate. She is well-appearing however will require insulin /fluids
Chronic conditions affecting care:
IDDM
<ALEXI Yan - Last Filed: 02/16/25 02:49>
*Pulse Oximetry
SaO2: 100
Oxygen Mode of Delivery: Room air
Patient hypoxic: no
*Critical Care Note
Total Time (30-74mins, 75-104mins- exclusive of procedures): Not Applicable
Data Reviewed
Review of Other/Old Records Reveals: Labs and Discharge Summary
ED Attending Note
<ALEXI Yan - Last Filed: 02/16/25 02:49>
-
Portions of this chart may have been created with voice recognition software.� Occasional wrong word or��sound alike� substitutions may have occurred due to the inherent limitations of voice recognition software.
<Martínez Tang DO - Last Filed: 02/15/25 20:59>
ED Attending Note
Patient seen and examined by attending physician: Yes
I performed the substantive portion of visit, reviewed & personally made and approve the management plan that is documented in note by myself or DARY.: Yes
ED Attending Note:
29-year-old female with diabetes who again presents with hyperglycemia found to have anion gap and elevated beta hydroxybutyrate. Exam: Tachycardic, awake alert and oriented, no respiratory distress and happy and smiling. Assessment and plan:
Start insulin drip IV at 0.05 units/kg. Admit. Case discussed with hospitalist
Discharge Plan
Departure
Patient Disposition: Admit
Date of Disposition: 02/15/25
Time of Disposition: 20:59
Admit to: IMU
Admit to doctor: hospitalist
Presentation/result/management discussed w/ accepting MD/DO: Hospitalist
Patient with high blood pressure during this ER visit?: No
Condition: Fair
Covid-19: Not Applicable
Discharge Problem:
DKA (diabetic ketoacidosis)
Interventions
Interventions:
*Risk Screen - Suicide Last Done: 02/15/25 19:01
*General Assessment Last Done: 02/15/25 19:01
*Neglect/Abuse Screening Last Done: 02/15/25 19:01
*ED- Fall Risk Assessment Last Done: 02/15/25 19:01
*ED COVID-19 Vaccine History Last Done: 02/16/25 01:20
*ED Influenza Vaccine History Last Done: 02/15/25 19:01
*Nursing Disposition Last Done: 02/15/25 23:43
ED- Neurological Assessment Last Done: 02/15/25 19:50
Discharge Date and Time
Discharge Date/Time: 02/15/25 23:43
[2025-02-15 19:33] LABS: Urine Character Clear (Clear)
[2025-02-15 19:40] LABS: HCG, Serum Qualitative Screen Negative
[2025-02-15 19:48] VITALS: BMI 27.8
[2025-02-15 19:49] VITALS: BP 118/59
[2025-02-15 19:51] LABS: ALT (SGPT) 21 U/L (0-35); AST (SGOT) 29 U/L (14-36); Albumin 5.1 g/dl (3.5-5.0); Alkaline Phosphatase 86 U/L (38-126); Blood Urea Nitrogen 17 mg/dl (7-17); Calcium 9.7 mg/dl (8.4-10.2); Carbon Dioxide 19 mmol/L (22-30); Chloride 96 mmol/L (98-107); Estimated Creatinine Clearance 99 ml/min; Glucose 494 mg/dl (70-99); Potassium 5.0 mmol/L (3.5-5.1); Sodium 132 mmol/L (135-145); Total Protein 8.3 g/dl (6.3-8.2); eGFR > 60.00
[2025-02-15 20:00] VITALS: BP 115/65
[2025-02-15] MEDS: NSS 1000 IV (20:34)
[2025-02-15 20:56] LABS: Venous Blood Gas B.E. -10.7 mmol/L (-4 to +4); Venous Blood Gas O2 Sat % 99.3 %
[2025-02-15 21:08] LABS: Glucose - Point of Care 398 mg/dl (70-99)
--- NOTE | 2025-02-15 21:15 | HPS.HSE ---
Family Physician
-
Family Physician: * NONE
Chief Complaint
-
insulin
History of Present Illness
29-year-old female past medical history of type 1 diabetes presenting for nausea and insulin.
She was admitted yesterday for mild DKA treated with insulin drip and discharged. She was seen by diabetic nurse practitioner who provided her with new CGM cliff 3+ sensor so she can manage insulin pump at home.
She states that when she went home she realized that her insulin in 2021 and was hesitant about using it. She has newer supply at her home in [facility].
She has some nausea but feels better than she felt when she came into the emergency room yesterday. Denies any further diarrhea.
She denies smoking or alcohol or drugs.
Medical History
Past Medical History
Past Medical History: Reports Other (type 1 diabetes)
Past Surgical History: Reports None
Social History
Tobacco: Non-smoker
Alcohol: None
Drug: None
Family History
Family History: Not pertinent
Allergies / Home Medications
Allergies reflects when Allergies were last updated in [employer].
Home Medications with original date entered in [facility]
Allergy/Medication List:
Allergies
Allergy/AdvReac Type Severity Reaction Status Date / Time
pollen extracts Allergy sore Verified 02/15/25 19:00
throat,runny
nose,itchy
eyes,
congestion
Home Medications
insulin aspart U-100 100 unit/mL subcutaneous solution (Novolog U-100 Insulin aspart) 1 sliding scale dose SC .CONTINUOUS Diabetes 02/14/25
Review of Systems
-
History Source: Patient
A 12 point ROS was completed and negative except as noted: Yes
Constitutional: Reports No Symptoms
EENT: Reports No Symptoms
Respiratory: Reports No Symptoms
Cardiac: Reports No Symptoms
Abdomen/GI: Reports See HPI
: Reports No Symptoms
Musculoskeletal: Reports No Symptoms
Skin: Reports No Symptoms
Neurological: Reports No Symptoms
Endocrine: Reports No Symptoms
Hematologic/Lymphatic: Reports No Symptoms
Psych: Reports No Symptoms
Physical Exam
Vital Signs
Vital Signs
Temp Pulse Resp BP Pulse Ox
98.3 F 113 18 115/65 100
02/15/25 19:51 02/15/25 20:45 02/15/25 20:45 02/15/25 20:00 02/15/25 20:30
Physical Exam
General: Well Developed, Well Nourished and No Apparent Distress
HEENT: NormoCephalic, Moist mucous membranes and Atraumatic
Respiratory: Clear
Cardiac: S1/S2 and Regular Rhythm; No Murmur or Rub
GI: Soft, Non Tender, Non Distended and Normal Bowel Sounds; No Organomegaly
Rectal: Deferred by Provider
Musculoskeletal: No Clubbing, No Cyanosis and No Edema
Skin: No Rash
Neuro: Nonfocal/grossly intact
Laboratory Results
-
02/15/25 19:19
Laboratory Results
Total Bilirubin 1.3 mg/dl (0.2-1.3) 02/15/25 19:19
AST 29 U/L (14-36) 02/15/25 19:19
ALT 21 U/L (0-35) 02/15/25 19:19
Alkaline Phosphatase 86 U/L (38-126) 02/15/25 19:19
Data Reviewed
-
Lab Data: Labs Reviewed by me
Old Records: Reviewed
Impression/Plan
-
IMPRESSION:
PLAN:
# Recurrent DKA due to insulin
-pH of 7.37 on VBG
-Blood sugar 494
- Anion gap of 17
-N.p.o.
-IV fluids
- Insulin drip started again
-Accu-Cheks every hour, BMP every 4 hours
- Diabetic CERTIFIED VETERINARY TECHNICIAN consulted
Full code
DVT prophylaxis�Lovenox
N.p.o.
[2025-02-15] MEDS: NOVOLIN R INSULIN INFUSION 100 IV (21:45)
[2025-02-15 22:33] VITALS: BP 114/60
[2025-02-15 22:47] LABS: Glucose - Point of Care 338 mg/dl (70-99)
[2025-02-15 23:25] LABS: Blood Urea Nitrogen 16 mg/dl (7-17); Calcium 8.8 mg/dl (8.4-10.2); Carbon Dioxide 16 mmol/L (22-30); Chloride 104 mmol/L (98-107); Estimated Creatinine Clearance 113 ml/min; Glucose 322 mg/dl (70-99); Potassium 4.5 mmol/L (3.5-5.1); Sodium 133 mmol/L (135-145); eGFR > 60.00
[2025-02-15 23:52] VITALS: BMI 28.9
[2025-02-15 23:57] VITALS: BP 138/63
[2025-02-16] VITALS (7 sets, daily range): BP systolic 124–156; BP diastolic 65–83
--- NOTE | 2025-02-16 | PTCARENOTE ---
pt received from ED on stretcher. Ambulated to bed with contact guard, steady gait. AAOx3. Resp even and non-labored on room air; pox 99%. sinus tachycardia with rate low 100's bpm on donor services manager. Insulin drip infusing at 3.6 units/hr via
right AC with IV fluids; IV site without redness or swelling. Accucheck 248 upon arrival. Glycemic protocol in place. Oriented to the room. Call bentley in reach. Bed in lowest position. Continuing to monitor
[2025-02-16 00:10] LABS: Glucose - Point of Care 248 mg/dl (70-99)
--- NOTE | 2025-02-16 00:30 | PTCARENOTE ---
pt's bedside accucheck on arrival to IMU 248. Provider notified. IV fluids changed to D5 1/2 NSS with 20 mEq KCl at 100 ml/hr. Insulin drip infusing at 3 units/hr per protocol. Continuing to monitor Q1hr accuchecks.
[2025-02-16] MEDS: D5/0.45%NSS with KCL 20 MEQ 1000 IV (01:01)
[2025-02-16 01:15] LABS: Glucose - Point of Care 195 mg/dl (70-99)
[2025-02-16 02:22] LABS: Glucose - Point of Care 165 mg/dl (70-99)
[2025-02-16 03:21] LABS: Glucose - Point of Care 171 mg/dl (70-99)
[2025-02-16 04:24] LABS: Glucose - Point of Care 155 mg/dl (70-99)
[2025-02-16 04:29] LABS: Blood Urea Nitrogen 13 mg/dl (7-17); Calcium 8.5 mg/dl (8.4-10.2); Carbon Dioxide 21 mmol/L (22-30); Chloride 106 mmol/L (98-107); Estimated Creatinine Clearance > 125 ml/min; Glucose 176 mg/dl (70-99); Potassium 4.3 mmol/L (3.5-5.1); Sodium 133 mmol/L (135-145); eGFR > 60.00
[2025-02-16 05:27] LABS: Glucose - Point of Care 177 mg/dl (70-99)
[2025-02-16 06:24] LABS: Glucose - Point of Care 160 mg/dl (70-99)
[2025-02-16 06:31] LABS: Hematocrit 36.4 % (37.0-47.0); Hemoglobin 12.2 g/dL (12.0-16.0); Mean Corp Hgb Conc. 33.5 g/dL (33.0-37.0); Mean Corpuscular Volume 93.3 fL (81.0-99.0); Nucleated Red Blood Cells % 0 %; Platelet Count 226 10^3/uL (130-400); Red Cell Dist. Width 12.1 % (11.5-14.5)
[2025-02-16 07:02] LABS: ALT (SGPT) 16 U/L (0-35); AST (SGOT) 22 U/L (14-36); Albumin 3.6 g/dl (3.5-5.0); Alkaline Phosphatase 56 U/L (38-126); Blood Urea Nitrogen 11 mg/dl (7-17); Calcium 8.5 mg/dl (8.4-10.2); Carbon Dioxide 21 mmol/L (22-30); Chloride 105 mmol/L (98-107); Estimated Creatinine Clearance > 125 ml/min; Glucose 174 mg/dl (70-99); Potassium 4.5 mmol/L (3.5-5.1); Sodium 133 mmol/L (135-145); Total Protein 6.5 g/dl (6.3-8.2); eGFR > 60.00
[2025-02-16 07:18] LABS: Glucose - Point of Care 139 mg/dl (70-99)
--- NOTE | 2025-02-16 07:36 | W.PN.HOSP.TC ---
Today's Communication/Plan
-
Discharge today
Assessment / Plan
Assessment / Plan
HPI: 29-year-old female past medical history of type 1 diabetes presenting for nausea and insulin.
She was admitted yesterday for mild DKA treated with insulin drip and discharged. She was seen by diabetic nurse practitioner who provided her with new CGM cliff 3+ sensor so she can manage insulin pump at home.
She states that when she went home she realized that her insulin in 2021 and was hesitant about using it. She has newer supply at her home in [facility].
She has some nausea but feels better than she felt when she came into the emergency room yesterday. Denies any further diarrhea.
Assessment/plan:
#Mild DKA
#Type 1 diabetes hemoglobin A1c 8.3
Gap closed on insulin drip
Started on 20 units Lantus daily, NovoLog 10 units AC 3 times daily
Patient tolerated her diet, feels well, and is medically stable for discharge
Sent a prescription for more insulin that she can put into her pump
Follow-up with PCP 1 week
#Leukocytosis
Likely reactive, resolved
Physical Exam
General: No acute distress
HEENT: Normocephalic, Atraumatic, EOMI, MMM
Respiratory: Clear to Auscultation bilaterally
Cardiac: Normal S1/S2, Regular Rate and Rhythm
GI: Soft, Nontender, Nondistended, Normal Bowel Sounds
Extremities: No Clubbing, Cyanosis, or Edema
Neuro: Nonfocal/Grossly Intact
Psych: Calm, Cooperative
Anticipated Discharge: Today
Subjective/Interval History
-
Date of Service: February 16, 2025
Objective Data
-
Labs:
Laboratory Results
02/15/25 02/15/25 02/15/25
19:19 21:00 23:03
WBC
Hgb
Hct
Plt Count
Sodium 132 L Cancelled 133 L
Potassium 5.0 Cancelled 4.5
Chloride 96 L Cancelled 104
Carbon Dioxide 19 L Cancelled 16 L
BUN 17 Cancelled 16
Creatinine 0.8 Cancelled 0.7
Glucose 494 H* Cancelled 322 H
Calcium 9.7 Cancelled 8.8
Total Bilirubin 1.3
AST 29
ALT 21
Alkaline Phosphatase 86
02/16/25 02/16/25 02/16/25
00:00 01:00 03:10
WBC
Hgb
Hct
Plt Count
Sodium Pending Pending 133 L
Potassium Pending Pending 4.3
Chloride Pending Pending 106
Carbon Dioxide Pending Pending 21 L
BUN Pending Pending 13
Creatinine Pending Pending 0.6
Glucose Pending Pending 176 H
Calcium Pending Pending 8.5
Total Bilirubin
AST
ALT
Alkaline Phosphatase
02/16/25 02/16/25
06:15 08:00
WBC 10.5
Hgb 12.2
Hct 36.4 L
Plt Count 226
Sodium 133 L Pending
Potassium 4.5 Pending
Chloride 105 Pending
Carbon Dioxide 21 L Pending
BUN 11 Pending
Creatinine 0.6 Pending
Glucose 174 H Pending
Calcium 8.5 Pending
Total Bilirubin 0.6
AST 22
ALT 16
Alkaline Phosphatase 56
Vital Signs:
Vital Signs
Temp Pulse Resp BP Pulse Ox
98.1 F 72 17 126/66 98
02/16/25 03:00 02/16/25 04:00 02/16/25 04:00 02/16/25 04:00 02/16/25 04:00
I&O
02/15/25 02/16/25 02/17/25
06:59 06:59 06:59
Intake Total 800 / 800
Output Total 400 / 400
Balance 400 / 400
[2025-02-16 08:23] LABS: Glucose - Point of Care 128 mg/dl (70-99)
[2025-02-16] MEDS: LANTUS 0.2 UNITS SC (08:38)
[2025-02-16 09:25] LABS: Glucose - Point of Care 120 mg/dl (70-99)
[2025-02-16] MEDS: NOVOLOG FLEXPEN SC (09:47)
[2025-02-16] MEDS: NOVOLOG FLEXPEN 10 UNITS SC ×2 (10:05→13:07)
--- NOTE | 2025-02-16 11:00 | PTCARENOTE ---
20 units of lantus given. Insulin drip d/c as per MD order. Patient ordered 1800 joycelyn diet. Most likely will be d/c to home today.
[2025-02-16 11:40] LABS: Glucose - Point of Care 194 mg/dl (70-99)
--- NOTE | 2025-02-16 12:35 | CM ---
CM reviewed chart, patient d/c yesterday, 02/15.
Patient is a 29-year-old female past medical history of type 1 diabetes presenting for nausea and insulin.
Per CM assessment 02/15, patient visiting mother, typically resides in apartment in [place], [place].
Pharmacy: [facility].
Plan return to [place] with request to work remote to assist with mother's care.
[2025-02-16] MEDS: NOVOLOG FLEXPEN-MODERATE RESISTANCE 1 UNITS SC (13:07)
[2025-02-16] MEDS: D5/0.45%NSS with KCL 20 MEQ IV (13:15)
--- NOTE | 2025-02-16 16:39 | W.DCSUMMARY ---
Discharge Summary
Discharge Data
Date of Admission: 02/15/25
Date of Discharge: 02/16/25
-
Pending Results: No
Hospital Course
Discharge diagnosis:
Diabetic ketoacidosis
Type 1 diabetes
Reactive leukocytosis
Hyponatremia
Hospital course:
29-year-old female with a past medical history of type 1 diabetes on an insulin pump who was treated for DKA and discharged from [facility] on 02/15/2025, is readmitted with DKA since her insulin in 2021. She was treated with an IV
insulin drip, IV fluids. Her gap closed, and she was transitioned to SQ insulin. She tolerated a diet. She is medically stable for discharge. A new prescription for NovoLog vial was sent to her pharmacy, so she can replace the insulin in
her insulin pump. She needs to follow-up with her PCP after she returns to [facility].
Disposition: Home self-care
Discharge planning: Required 37 minutes
Discharge Plan
-
Patient Disposition: Home (Routine Discharge)
Discharge Diagnosis/Procedures: Diabetic ketoacidosis
Condition: Good
Diet: Diabetic, Carb Controlled
Activity: As tolerated
Driving Restrictions: As prior to admission
Referrals:
NONE,* [Family Provider, Internal Medicine]
Prescriptions:
New
insulin aspart U-100 100 unit/mL solution
1 sliding scale dose SC DIRECTED Qty: 10 0RF
Continued
insulin aspart U-100 [Novolog U-100 Insulin aspart] 100 unit/mL solution
1 sliding scale dose SC .CONTINUOUS
Rx Instructions:
CARB RATIO 1:10
Discharge Orders:
Discharge Patient (As Directed); Ordered 02/16/25
Ordered By: Jericho Moody
Discharge Date and Time
Discharge Date/Time: 02/16/25 14:00
Print Language: SETSWANA
== END 2025-02-16 14:00 | disposition home or self-care (01) | DRG 638 ==
LOC: IMU 21:44
PROVIDERS: Emergency Medicine; Nurse Practitioner; ADMITTING PHYSICIAN Hospitalist; ATTENDING PHYSICIAN Family Medicine; EMERGENCY PHYSICIAN Emergency Medicine
DX: E10.10 Type 1 diabetes mellitus with ketoacidosis without coma (principal); E87.1 Hypo-osmolality and hyponatremia; Z79.4 Long term (current) use of insulin; Z96.41 Presence of insulin pump (external) (internal); T38.3X6A Underdosing of insulin and oral hypoglycemic [antidiabetic] drugs, initial encounter; Z91.138 Patient's unintentional underdosing of medication regimen for other reason
CPT/HCPCS: 80048; 80053; 81003; 82010; 82805; 82962; 84703; 85025; 96361; 96365; 96366; 99284